=== PATIENT | female | born 1985 | race Two or more races ===

== ENCOUNTER 2020-04-25 07:39 | Emergency (ER) | payer OTHER ==
[~2020-04-25] VITALS: Ht 175.3 cm; Wt 104.3 kg
--- NOTE | 2020-04-25 07:57 | Emergency Room Report ---
History of Present Illness General Chief Complaint: Abdominal Pain Source: Patient Present Illness HPI Disclaimer: Please note that this report is being documented using [employer] technology. This can lead to erroneous entry secondary to incorrect interpretation by the dictating instrument. HPI: 35-year-old female presents for abdominal pain. Symptoms began proximately 6 hours ago. Shortly after eating she became nauseated and developed right upper quadrant stabbing pain. Radiates to the back. Reports nausea but no vomiting. Denies lower abdominal pain or cramping. Denies dysuria or hematuria. Denies diarrhea, fever or chills. LMP 1 week ago. No prior history of gallstones or kidney stones. No prior history of abdominal surgeries. Has not taken anything prior to arrival. 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 EOMI. Cardiovascular: RRR. S1 and S2 normal. No murmur appreciated Resp: Normal work of breathing. No cough, wheezing or crackles appreciated Abdomen: Abdomen is soft, nondistended. Obese abdomen. Tender to palpation in the right upper quadrant with positive Benitez's tenderness. Mild epigastric tenderness. No tenderness left upper quadrant, right lower quadrant, left lower quadrant, suprapubic region or periumbilical region. No CVA tenderness. Skin: Intact. No abrasions, laceration or rash over the exposed skin MSK: Normal tone and bulk. Moving all extremities. No obvious deformity. Neuro: Awake and alert. Mentating appropriately. Medical Decision Making Diagnostic Impression: Primary Impression: Symptomatic cholelithiasis ER Course Is a 35-year-old female presenting for abdominal pain. Concern for gastritis, gastroenteritis, pancreatitis, cholecystitis, choledocholithiasis, hepatitis, nephrolithiasis, pyelonephritis, UTI, ectopic among others. Bedside ultrasound performed by me shows retained gallstones in the gallbladder. Formal ultrasound shows normal gallbladder wall, CBD diameter, no pericholecystic fluid or other signs of acute cholecystitis. They do demonstrate multiple gallstones within the gallbladder. Labs including LFTs and bilirubin are within normal limits. No evidence of acute cholecystitis at this time. Likely symptomatic cholelithiasis. Patient received IV fluids, antiemetics, pain medication with adequate control of symptoms at this time. Will discharge with outpatient follow-up. Instructed to return with new or worsening symptoms. She understands and agrees with this treatment plan. Laboratory Tests Test 04/25/20 07:57 White Blood Count 8.4 K/UL (4.8-10.8) Red Blood Count 4.63 M/UL (4.20-5.40) Hemoglobin 13.1 G/DL (12.0-16.0) Hematocrit 40.8 % (37.0-47.0) Mean Corpuscular Volume 88 FL (80-99) Mean Corpuscular Hemoglobin 28.4 PG (27.0-31.0) Mean Corpuscular Hemoglobin Concent 32.2 G/DL (32.0-36.0) Red Cell Distribution Width 12.5 % (11.6-14.8) Platelet Count 291 K/UL (150-450) Mean Platelet Volume 8.1 FL (6.5-10.1) Neutrophils (%) (Auto) 61.7 % (45.0-75.0) Lymphocytes (%) (Auto) 29.5 % (20.0-45.0) Monocytes (%) (Auto) 7.7 % (1.0-10.0) Eosinophils (%) (Auto) 0.5 % (0.0-3.0) Basophils (%) (Auto) 0.7 % (0.0-2.0) Prothrombin Time 10.5 SEC (9.30-11.50) Prothrombin Time INR 0.9 (0.9-1.1) Activated Partial Thromboplast Time 26 SEC (23-33) Urine Color Pale yellow Urine Appearance Clear Urine pH 8 (4.5-8.0) Urine Specific [place] 1.010 (1.005-1.035) Urine Protein Negative (NEGATIVE) Urine Glucose (UA) Negative (NEGATIVE) Urine Ketones Negative (NEGATIVE) Urine Blood 2+ (NEGATIVE) H Urine Nitrite Negative (NEGATIVE) Urine Bilirubin Negative (NEGATIVE) Urine Urobilinogen Normal MG/DL (0.0-1.0) Urine Leukocyte Esterase Negative (NEGATIVE) Urine RBC 0-2 /HPF (0 - 2) Urine WBC 0-2 /HPF (0 - 2) Urine Squamous Epithelial Cells Few /LPF (NONE/OCC) Urine Bacteria Few /HPF (NONE) Urine HCG, Qualitative Negative (NEGATIVE) Sodium Level 143 MMOL/L (136-145) Potassium Level 3.2 MMOL/L (3.5-5.1) L Chloride Level 106 MMOL/L (98-107) Carbon Dioxide Level 30 MMOL/L (21-32) Anion Gap 7 mmol/L (5-15) Blood Urea Nitrogen 13 mg/dL (7-18) Creatinine 1.0 MG/DL (0.55-1.30) Estimated Glomerular Filtration Rate > 60 mL/min (>60) Glucose Level 83 MG/DL (74-106) Calcium Level 8.7 MG/DL (8.5-10.1) Total Bilirubin 0.2 MG/DL (0.2-1.0) Aspartate Amino Transferase (AST) 17 U/L (15-37) Alanine Aminotransferase (ALT) 19 U/L (12-78) Alkaline Phosphatase 71 U/L (46-116) Total Protein 7.4 G/DL (6.4-8.2) Albumin 3.7 G/DL (3.4-5.0) Globulin 3.7 g/dL Albumin/Globulin Ratio 1.0 (1.0-2.7) Lipase 217 U/L (73-393) CT/MRI/US Diagnostic Results CT/MRI/US Diagnostic Results : Impression Final Report EXAM: US Abdomen Complete CLINICAL HISTORY: ABD PAIN TECHNIQUE: Real-time ultrasound of the abdomen with image documentation. COMPARISON: No relevant prior studies available. FINDINGS: Liver: Right hepatic lobe diameter of 15.9 cm. No visible parenchymal lesions. No intrahepatic biliary ductal dilatation. Main portal vein appears patent with hepatopetal flow. Gallbladder: Cholelithiasis with stones measuring up to 8 mm in diameter. No wall thickening. No pericholecystic fluid. Common bile duct: Common bile duct diameter 4.1 mm, within normal limits. Pancreas: Visualized portions of the pancreatic head appear unremarkable. Pancreatic body and tail are obscured by bowel gas. Kidneys: Right kidney length of 11.6 cm. Left kidney length of 9.8 cm. Normal cortical thickness. No visible stones. No hydronephrosis. Spleen: Spleen length of 11.1 cm, within normal limits. Aorta: Visualized proximal portions appear unremarkable without evidence of aneurysm. Mid and distal abdominal aorta is obscured by bowel gas. Inferior vena cava: Unremarkable. Free fluid: None. IMPRESSION: Cholelithiasis without evidence of acute inflammation. No gallbladder wall thickening or pericholecystic fluid. Normal diameter of the common bile duct. Radiologist: Guanakito Elder MD Electronically Signed: 04/25/20 08:58 Study ready at 08:35 and initial results transmitted at 08:58 Diagnostic POCUS Bedside Ultrasound Diagnostics: Bedside US Exam performed: Abd Limited Indication: Abdominal Pain Number of Views: Limited Interpreted by Emergency Physi: Yes Abdomen Limited interpretation: Gallbladder visualized, No pericholecystic fluid, Other - Retained stones in gallbladder Impression: Other - Cholelithiasis Electronically Signed by: Electronically signed by Dr. Jaison Ulloa MD Last Vital Signs Date Time Temp Pulse Resp B/P (MAP) Pulse Ox O2 Delivery O2 Flow Rate FiO2 04/25/20 07:49 97.9 59 16 122/83 (96) 97 Room Air Disposition: HOME, SELF-CARE Condition: Stable Scripts Ondansetron Odt* (ZOFRAN ODT*) 4 Mg Tab.rapdis 4 MG BC EVERY 6 HOURS PRN for Nausea & Vomiting, #20 TAB 0 Refills Prov: Jaison Ulloa MD 04/25/20 Ibuprofen* (MOTRIN*) 600 Mg Tablet 600 MG ORAL Q6H PRN for For Pain, #30 TAB 0 Refills Prov: Jaison Ulloa MD 04/25/20 Hydrocodone/Acetaminophen 7.5-325* (HYDROCODON-ACETAMINOPH 7.5-325*) 1 Each Tablet 1 TAB ORAL Q6H, #12 TAB 0 Refills Prov: Jaison Ulloa MD 04/25/20 Jaison Ulloa MD Apr 25, 2020 07:57
[2020-04-25] MEDS ORDERED: Morphine Sulfate 4mg/ml Inj (IV USE ONLY) IVP ONE ×2 (08:00→08:45)
[2020-04-25 08:06] VITALS: BP 132/82
[2020-04-25 08:12] LABS: BASOPHILS % (AUTO) 0.7 % (0.0-2.0); EOSINOPHILS % (AUTO) 0.5 % (0.0-3.0); HEMATOCRIT 40.8 % (37.0-47.0); HEMOGLOBIN 13.1 G/DL (12.0-16.0); LYMPHOCYTES % (AUTO) 29.5 % (20.0-45.0); MEAN CORPUSCULAR VOLUME 88 FL (80-99); MONOCYTES % (AUTO) 7.7 % (1.0-10.0); NEUTROPHILS % (AUTO) 61.7 % (45.0-75.0); PLATELET COUNT 291 K/UL (150-450); RED BLOOD COUNT 4.63 M/UL (4.20-5.40); RED CELL DISTRIBUTION WIDTH 12.5 % (11.6-14.8); WHITE BLOOD COUNT 8.4 K/UL (4.8-10.8)
[2020-04-25 08:13] LABS: APPEARANCE,URINE CLEAR; BILIRUBIN, URINE NEGATIVE (NEGATIVE); COLOR,URINE PALE YELLOW; GLUCOSE, URINE (UA) NEGATIVE (NEGATIVE); KETONES,URINE NEGATIVE (NEGATIVE); LEUKOCYTE ESTERASE ,URINE NEGATIVE (NEGATIVE); NITRITE,URINE NEGATIVE (NEGATIVE); PH,URINE 8 (4.5-8.0); PROTEIN,URINE NEGATIVE (NEGATIVE); UROBILINOGEN,URINE NORMAL MG/DL (0.0-1.0)
[2020-04-25 08:25] LABS: ANION GAP 7 mmol/L (5-15); BLOOD UREA NITROGEN 13 mg/dL (7-18); CALCIUM 8.7 MG/DL (8.5-10.1); CARBON DIOXIDE 30 MMOL/L (21-32); CHLORIDE 106 MMOL/L (98-107); POTASSIUM 3.2 MMOL/L (3.5-5.1); SODIUM 143 MMOL/L (136-145)
[2020-04-25 08:29] LABS: ALANINE AMINOTRANSFERASE 19 U/L (12-78); ALBUMIN 3.7 G/DL (3.4-5.0); ALKALINE PHOSPHATASE 71 U/L (46-116); ASPARTATE AMINO TRANSFERASE 17 U/L (15-37); BILIRUBIN,TOTAL 0.2 MG/DL (0.2-1.0)
[2020-04-25 08:35] LABS: INR 0.9 (0.9-1.1)
--- NOTE | 2020-04-25 08:59 | Diagnostic Imaging Report ---
EXAM: US Abdomen Complete CLINICAL HISTORY: ABD PAIN TECHNIQUE: Real-time ultrasound of the abdomen with image documentation. COMPARISON: No relevant prior studies available. FINDINGS: Liver: Right hepatic lobe diameter of 15.9 cm. No visible parenchymal lesions. No intrahepatic biliary ductal dilatation. Main portal vein appears patent with hepatopetal flow. Gallbladder: Cholelithiasis with stones measuring up to 8 mm in diameter. No wall thickening. No pericholecystic fluid. Common bile duct: Common bile duct diameter 4.1 mm, within normal limits. Pancreas: Visualized portions of the pancreatic head appear unremarkable. Pancreatic body and tail are obscured by bowel gas. Kidneys: Right kidney length of 11.6 cm. Left kidney length of 9.8 cm. Normal cortical thickness. No visible stones. No hydronephrosis. Spleen: Spleen length of 11.1 cm, within normal limits. Aorta: Visualized proximal portions appear unremarkable without evidence of aneurysm. Mid and distal abdominal aorta is obscured by bowel gas. Inferior vena cava: Unremarkable. Free fluid: None. IMPRESSION: Cholelithiasis without evidence of acute inflammation. No gallbladder wall thickening or pericholecystic fluid. Normal diameter of the common bile duct.
[2020-04-25] MEDS ORDERED: Ketorolac 30mg Inj IV ONE (09:15)
[2020-04-25 09:41] VITALS: BP 102/56
[2020-04-25] MEDS ORDERED: Metoclopramide 10mg/2ml Inj IVP ONE (10:15)
[2020-04-25] MEDS ORDERED: DiphenhydrAMINE 50mg/ml Inj IVP ONE (10:15)
[2020-04-25] MEDS ORDERED: HYDROmorphone 1mg/ml Carpuject IVP ONE (10:15)
[2020-04-25] MEDS ORDERED: IBUPROFEN600 M1 ORAL (11:30)
[2020-04-25] MEDS ORDERED: HYDROCODON-ACE1 EA16 ORAL ×2 (11:30)
[2020-04-25] MEDS ORDERED: ONDANSETRON ODT4 MG BC (11:30)
[2020-04-25 12:10] VITALS: BP 99/56
[2020-04-25] MEDS ORDERED: TRAMADOL HCL50 MG ORAL (12:16)
== END 2020-04-25 12:00 | disposition home or self-care (01) ==
LOC: EMR 08:00
DX: K80.20 Calculus of gallbladder without cholecystitis without obstruction (principal)
CPT/HCPCS: 36415; 76700; 80053; 81003; 81025; 83690; 85025; 85610; 85730; 96361; 96374; 96375; 96376; 99284; J1170; J1200; J1885; J2270; J2405; J2765